=== PATIENT | female | born 1960 | race Hispanic/Latino ===

== ENCOUNTER 2025-04-13 16:33 | Emergency (ER) | payer OTHER ==
[~2025-04-13] VITALS: Ht 157.5 cm; Wt 52.6 kg
--- NOTE | 2025-04-13 16:46 | ERN ---
ED Note History of Present Illness Stated Complaint: BACK PAIN Chief Complaint: Back Pain or Injury Time Seen by MD: 16:37 Time Seen by Midlevel: 16:38 Dictation: 64-year-old female presents to the emergency department due to reported having pain to the lower back and a flare-up of her sinus headache. Currently, she denies having sustained any type of an injury. The pain is described as being diffusely on her lower back. In regards to the headache, is also rated as a 6/10 along with her backache. Currently, she denies having any changes in vision, nausea or vomiting. Desired there is no report of any loss of bowel or bladder and maintains a normal neurological function to both lower extremities. Upon initial evaluation, the patient presents with a normal neurological examination. Allergies: Coded Allergies: No Known Drug Allergies (Unverified Allergy, Unknown, 04/13/25) Emergency Care [employer] DIRECT[employer]: None Past Medical History PSYCH History: no pertinent psych hx RN Note Reviewed/Agreed w/PFSH: Yes Review of System Dictation MS/Extremity: Low back pain Neuro: Headache Initial Vital Sign VS Vital Signs Date Time Temp Pulse Resp B/P (MAP) Pulse Ox O2 Delivery O2 Flow Rate FiO2 04/13/25 16:37 98.1 85 18 142/76 100 Room Air 0 04/13/25 17:42 21 Physical Exam Dictation General: awake, alert, NAD Head/Face: Normocephalic, atraumatic Eyes: PERRL, EOMI ENT: Oral mucosa moist Neck: Trachea midline, supple Cardiovascular: RRR, no edema Respiratory: Symmetrical, non-labored Abdomen: Soft, non-tender, non-distended, no guarding. Skin: Warm, dry, good turgor, no rash MS/Extremity: Pulses equal, no cyanosis, neurovascular intact, FROM Back: Diffuse tenderness here, no vertebral tenderness, no step-off deformity. Neuro: COAx4, GCS 15, steady gait, Psych: Normal behavior, mood, and affect normal Results (Laboratory/Radiology) EKG Comment: EKG done at 5:29 p.m. Ventricular rate 68 beats per minute [place] 133 MS QRS 81 MS QT 383 MS No STEMI. X-RAY Comment: Three-view x-ray of the lumbar spine with degenerative changes as interpreted by me and verified by the radiologist. ED Course ED Course Orders Procedure Category Date Status Time Lumbar Spine 2-3vws RAD 04/13/25 Resulted 16:40 Dexamethasone 4mg/Ml PHA 04/13/25 Complete 1ml Vial (Dexametha 17:00 Lidocaine (Lidoderm PHA 04/13/25 Complete Patch 5%) 17:00 Ketorolac PHA 04/13/25 Complete Tromethamine 30mg/Ml 17:00 12 Lead Ekg Tracing- EKG 04/13/25 Logged Technical 17:25 Current Medications Medications (Trade) Dose Ordered Sig/James Route PRN Reason Start Time Stop Time Status Last Admin Dose Admin Dexamethasone Sodium Phosphate (dexaMETHasone 4MG/ML 1ML VIAL) 6 mg ONCE ONCE IM 04/13/25 17:00 04/13/25 17:01 DC 04/13/25 17:29 Ketorolac Tromethamine (toRADol) 30 mg ONCE ONCE IM 04/13/25 17:00 04/13/25 17:01 DC 04/13/25 17:30 Lidocaine (Lidoderm Patch 5%) 1 patch ONCE ONCE TP 04/13/25 17:00 04/13/25 17:01 DC 04/13/25 17:29 Vital Signs Date Time Temp Pulse Resp B/P (MAP) Pulse Ox O2 Delivery O2 Flow Rate FiO2 04/13/25 17:42 98.1 85 18 142/76 100 Room Air* 0 21 04/13/25 16:37 98.1 85 18 142/76 100 Room Air 0 Medical Decision Making MDM MDM: Differential diagnosis: Lumbago, lumbar back sprain, migraine headache. Rationale: Tests considered and ordered secondary to shared decision making include: Previous outside records reviewed: Old ER visits. Risk of complication and/or morbidity or mortality of patient management: None Medications-Per medication reconciliation Need for hospitalization: Patient does not meet criteria for hospitalization. Need for emergency major/minor surgery: No There are no social concerns with this patient. Prescription drug management Prescriptions will include symptomatic care Patient's prior external medical records from other ER visits were reviewed by me as indicated. Prior testing and results from previous visits were reviewed. Prior tests were taken into account with medical decision making and resource utilization, independent historian/historians were used to obtain complete [facility] history. I independently interpreted the test that were performed, results were reviewed by me and considered findings on radiology if ordered. Medical management and examination interpretation discussions were had by me with other qualified healthcare professionals as indicated for the patient's care. DX & DISP Disposition: Discharge Departure Impression: Primary Impression: Lumbar back pain Additional Impression: Migraine headache Condition: Stable Time of Disposition: 18:15 ANTONIO ARROYO Apr 13, 2025 16:45
[2025-04-13] MEDS: LIDOCAINE 5% TOPICAL PATCH TP ONE (17:29)
--- NOTE | 2025-04-13 17:38 | HMCIMG ---
STUDY CR Lumbar Spine, 2 views CLINICAL HISTORY Low back pain TECHNIQUE Frontal and lateral radiographs of the lumbar spine. COMPARISON None provided. FINDINGS BONES No acute lumbar spine fracture or aggressive osseous lesion is identified. Vertebral body heights are preserved. ALIGNMENT Overall lumbar alignment is maintained without significant scoliosis or spondylolisthesis. DISCS AND DEGENERATIVE CHANGES There is moderate degenerative lumbar spondylosis, most pronounced at the lower lumbar levels. The intervertebral disc spaces are grossly preserved. FACET JOINTS Facet arthrosis is present at L5S1, with articular sclerosis and hypertrophy. SOFT TISSUES Paraspinal soft tissues are unremarkable. IMPRESSION * Moderate degenerative lumbar spondylosis with facet arthrosis at L5S1. * No acute lumbar spine fracture or malalignment. /[place]
[2025-04-13 17:42] VITALS: BP 142/76; PULSE 85; RESP 18; TEMP 98.1; O2SAT 100
--- NOTE | 2025-04-14 19:42 | EKG ---
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
== END 2025-04-13 18:29 | disposition home or self-care (01) ==
LOC: EDH 16:33
DX: M54.50 Low back pain, unspecified (principal); G43.909 Migraine, unspecified, not intractable, without status migrainosus
CPT/HCPCS: 99284; 72100; 96372 ×2; 93005; J1100; J1885